=== PATIENT | male | born 1990 | race Caucasian/White ===

== ENCOUNTER 2021-11-19 00:37 | Day surgery (SDC) | payer OTHER, SELFPAY ==
[2021-11-04 11:08] VITALS: BMI 37.6
--- NOTE | 2021-11-18 10:58 | WPDANESEPPF ---
Anes - Initial Pre Proc Eval Procedure: Operation Date: 11/19/21 10:00 Proposed Procedures p Colonoscopy - Franklyn Hill MD Date/Time: 11/18/21 10:58 Surgeon: Franklyn Hill MD Pre Op Diagnosis: malabsorption, colitis Patient Data Age: 31 Gender: M Height: 1.7 m Weight: 109 kg Allergies Allergy/AdvReac Type Severity Reaction Status Date / Time No Known Allergies Allergy Verified 11/19/21 08:40 Home Medications Medication Instructions Recorded Confirmed Type No Home Medications 11/04/21 11/04/21 History Patient hx anesthesia problems: none Family hx anesthesia problems: none Results Review: All pre-operative results and documents have been reviewed as part of the pre-operative evaluation. [facility], [facility] Past Medical History Medical History (Updated 11/18/21 @ 10:58 by Channing Deluca DO) ADD (attention deficit disorder) Irritable bowel syndrome with diarrhea Family History Family History Mother Family history of mental disorder Father Hypertension Social History Social History Tobacco type: cigars Smoking end date: 08/09/15 Alcohol intake: current Alcohol use details: occasionally Substance use: never Substance use type: does not use Living arrangements: with family Spiritual care concerns: No Anes - Eval Final PreProcedure Day of Procedure 11/18/21 10:58 Patient weight: obese Heart: regular rate and rhythm Lungs: clear to auscultation and normal air movement Airway: Mallampati scale class II Neurological: alert and oriented Last oral intake: >/= 8 hours ASA classification: II Emergent: no Anesthetic plan: proceed Anesthesia type and monitoring: general GIVS and standard monitoring Results Review: All pre-operative results and documents have been reviewed as part of the pre-operative evaluation. Informed Consent: The patient's anesthetic plan and its attendant risks and benefits were discussed with the patient/family/POA. Questions were solicited and answers provided to the satisfaction of the patient/family/POA.
[2021-11-19 08:41] VITALS: BP 123/88; PULSE 90; RESP 16; TEMP 36.3; O2SAT 98
[2021-11-19] MEDS: LACTATED RINGERS 1,000 ML 150 ML IV CONT (08:53)
--- NOTE | 2021-11-19 09:30 | WPDGICN ---
Assessment and Plan Assessment and plan (1) Change in bowel habits: Code(s): R19.4 - Change in bowel habit Status: Acute Assessment and Plan: Colonoscopy with possible biopsy or polypectomy or cautery or injection of substances. GI Consult Note Consult date/time: 11/19/21 09:30 HPI: Rusty Cintron is a 31 year old male Who has had a change in bowel habits. Often he passes what looks like mucus or oily material. He also has noticed undigested food, particularly vegetables in his stool. He has had no weight loss however he does get discomfort in the abdomen particularly in the right mid abdomen where he has a great deal of borborygmi after meal. Biology for celiac disease was done that was negative. Review of Systems Review of Systems: All systems reviewed & are unremarkable except as noted in HPI and below PMFSH Past Medical History Medical History ADD (attention deficit disorder) Irritable bowel syndrome with diarrhea Family History Family History Mother Family history of mental disorder Father Hypertension Social History Social History Tobacco type: cigars Smoking end date: 08/09/15 Alcohol intake: current Alcohol use details: occasionally Substance use: never Substance use type: does not use Living arrangements: with family Spiritual care concerns: No Meds Home Medications and Allergies Home Medications Medication Instructions Recorded Confirmed Type No Home Medications 11/04/21 11/04/21 History Allergies Allergy/AdvReac Type Severity Reaction Status Date / Time No Known Allergies Allergy Verified 11/19/21 08:40 Vital Signs Vital Signs - 24 hr 11/19/21 08:41 Temperature 36.3 C L Pulse Rate 90 Respiratory Rate 16 Blood Pressure 123/88 Pulse Oximetry 98 Exam Const: General: alert Orientation/consciousness: patient oriented x3 Resp: Auscultation: clear to auscultation bilaterally Cardio: Rhythm: regular rhythm GI: GI Palp: Yes Soft to palpation and No Tenderness to palpation present (GI) Neuro: General: patient oriented x3
[2021-11-19 09:52] VITALS: BP 107/72; PULSE 87; RESP 17; O2SAT 97
[2021-11-19 10:02] VITALS: BP 121/69; PULSE 81; RESP 20; O2SAT 96
[2021-11-19 10:12] VITALS: BP 117/70; PULSE 69; RESP 17; O2SAT 98
== END 2021-11-19 10:21 | disposition home or self-care (01) ==
PROVIDERS: PCP Family Medicine; Visit Provider Internal Medicine Gastroenterology
PROC: 0DJD8ZZ Inspection of Lower Intestinal Tract, Via Natural or Artificial Opening Endoscopic (ICD-10-PCS; CPT 45378; principal; 2021-11-19 10:00)
DX: R19.4 Change in bowel habit (principal); D12.5 Benign neoplasm of sigmoid colon; K52.9 Noninfective gastroenteritis and colitis, unspecified; K63.3 Ulcer of intestine; F98.8 Other specified behavioral and emotional disorders with onset usually occurring in childhood and adolescence
CPT/HCPCS: 45380; 88305; J2704; J7120